=== PATIENT | female | born 1955 | race Asian ===

== ENCOUNTER 2024-09-26 20:03 | Emergency (ER) | payer MEDICARE, MEDICAID, SELFPAY ==
--- NOTE | 2024-09-26 20:24 | EKG_ITS ---
[facility] Test Date: 2024-09-26 Pat Name: ABRAHAM HOOK Department: Room: - Gender: Female Store Administrator: : 1955 Requested By: Yordy Garcia Order Number: [id number] Reading MD: Yordy Garcia Measurements Intervals [place] Rate: 63 P: 32 SC: 184 QRS: -16 QRSD: 86 T: 36 QT: 419 QTc: 430 Interpretive Statements SINUS RHYTHM LOW QRS VOLTAGE IN PRECORDIAL LEADS [QRS DEFLECTION < 1.0 mV IN CHEST LEADS] PATTERN CONSISTENT WITH PULMONARY DISEASE Compared to ECG 02/16/2024 01:36:08 No significant changes /store/S0/[id number]/ecg/[id number].pdf
[2024-09-26 21:24] VITALS: BP 166/93; PULSE 67; RESP 20; TEMP 37.1; O2SAT 97
--- NOTE | 2024-09-26 21:49 | XR_ITS ---
Chest single view Technique: Upright chest single view Exam date and time: September 26, 2024 2156 hrs. Comparison February 16, 2024 Indication: Chest pain. Findings: Early heart failure Mild enlargement cardiac contour Prominent vascular congestion. Early septal edema at the lung bases Impression: Early heart failure
--- NOTE | 2024-09-26 21:50 | PD.EDRME ---
Rapid Medical Screening Exam [facility] Arrival date/time: 09/26/24 20:03 69F with history of HTN presents to ED with L lower CP that radiates to back for 2 days. Patient denies URI symptoms and SOB. Pain is worse with movement. Chief Complaint: Chest Pain Vital signs: Vital Signs Temperature 98.7 F 09/26/24 21:24 Pulse Rate 67 09/26/24 21:24 Respiratory Rate 20 09/26/24 21:24 Blood Pressure 166/93 H 09/26/24 21:24 Pulse Oximetry (%) 97 09/26/24 21:24 Oxygen Delivery Method Room Air 09/26/24 21:24
[2024-09-26 22:39] LABS: Basophils # (Auto) 0.1 Thou/mm3 (0.0-0.2); Basophils % (Auto) 1 % (0-2.5); Eosinophils # (Auto) 0.3 Thou/mm3 (0.0-0.5); Eosinophils % (Auto) 3 % (0-10); Hematocrit 42.2 % (36.0-46.0); Hemoglobin 14.2 g/dL (12.0-16.0); Immature Granulocytes % (Auto) 0 % (0-0); Immature Granulocytes Auto 0.03 Thou/mm3 (0.00-0.00); Lymphocytes # (Auto) 1.6 Thou/mm3 (1.0-4.8); Lymphocytes % (Auto) 17 % (10-50); Mean Corpuscular HGB Conc 33.6 g/dl (31.0-37.0); Mean Corpuscular Volume 86 fL (80-100); Monocytes # (Auto) 0.5 Thou/mm3 (0.0-0.8); Monocytes % (Auto) 5 % (0-12); Neutrophils # (Auto) 6.9 Thou/mm3 (1.8-7.7); Neutrophils % (Auto) 74 % (37-80); Nucleated Red Blood Cell % 0 /100 WBC (0); Platelet Count 169 Thou/mm3 (140-440); RDW Standard Deviation 43.7 fL (36.4-46.3); White Blood Count 9.3 Thou/mm3 (3.6-11.0)
[2024-09-26 22:58] LABS: Alanine Aminotransferase 26 U/L (10-49); Albumin, Serum 4.9 gm/dL (3.4-4.8); Albumin/Globulin Ratio 1.3 (1.2-2.2); Alkaline Phosphatase 73 U/L (46-116); Anion Gap 7 (7-16); Aspartate Amino Transferase 24 U/L (0-34); BUN/Creatinine Ratio 22 Ratio (12-20); Bilirubin,Total 0.7 mg/dL (0.3-1.2); Blood Urea Nitrogen 24 mg/dL (9-23); Carbon Dioxide 28.7 mMol/L (20.0-31.0); Chloride 105 mMol/L (98-107); Creatinine (Component) 1.1 mg/dL (0.6-1.3); Globulin 3.9 gm/dL (2.3-3.5); Glucose 108 mg/dL (74-106); Lipase 40 U/L (12-53); Osmolality,Calculated 286 (275-295); Potassium 4.7 mMol/L (3.4-5.1); Sodium 141 mMol/L (136-145); Total Protein 8.8 gm/dL (5.7-8.2); Troponin I < 0.002 ng/mL (0.0-0.045); eGFR 54 See Note
--- NOTE | 2024-09-26 23:33 | PD.EDCHEST ---
ED Chest Pain RME/HPI General Chief Complaint: Chest Pain Stated Complaint: CHEST PAIN Time Seen by Provider: 09/26/24 23:33 Arrival date/time: 09/26/24 20:03 Limitations: language barrier (speaks Hmong) RME / HPI RME / HPI narrative: 09/26/24 20:03 69F with history of HTN presents to ED with L lower CP that radiates to back for 2 days. Patient denies URI symptoms and SOB. Pain is worse with movement. ------ Dr. Miles?s Main ED Evaluation: 69yo female with a history of HTN, gout accompanied by her son presents to the ED for a chief of left-sided chest pain that radiates to her upper back x yesterday morning. Patient states her pain is intermittent, currently rating her pain a 6 out of 10 in severity. She describes her pain as pressure and tightness in nature. She denies any cough, fever, chills or any other associated symptoms. No known allergies. Related Data Home Medications ?Medication ?Instructions ?Recorded ?Confirmed Amitriptyline Hcl * (ELAVIL *) 25 mg PO HS #0 tabs 07/12/17 MECLIZINE HCL (ANTIVERT 25MG tab PO Q12HR ##0 07/12/17 TABLET) carvedilol 12.5 mg tablet (Coreg) 12.5 mg PO BID #0 tabs 07/12/17 hydrochlorothiazide 25 mg tablet 25 mg PO QAM #0 tabs 07/12/17 ibuprofen 600 mg tablet 600 mg PO TID PRN PAIN #0 tabs 07/12/17 Previous Rx's ?Medication ?Instructions ?Recorded tramadol 50 mg tablet (Ultram) 1 - 2 tab PO Q6HR PRN moderate 07/12/17 pain #30 tabs tramadol 50 mg tablet 50 mg PO BID PRN pain #6 tabs 06/22/22 Allergies Allergy/AdvReac Type Severity Reaction Status Date / Time NKA* Allergy Uncoded 02/16/24 01:02 Review of Systems Review of Systems Systems Reviewed: All systems reviewed, normal except as documented ED Exam Narrative Physical exam: GENERAL APPEARANCE: alert and oriented x 4, well-developed, well-nourished, no acute distress VITALS: All vitals were reviewed and the pulse ox is 97% on room air, which is normal according to my interpretation. HEENT: Normocephalic, atraumatic; pupils equal, round, reactive to light; EOMI; mucous membranes pink, moist; oropharynx clear NECK: Supple LUNGS: CTABL; no wheezes, no rales, no rhonchi HEART: Regular rate, regular rhythm; normal S1, S2; no murmurs ABDOMEN: non distended; normal BS; soft, no tenderness, no guarding, no rebound; no masses, no organomegaly, no hernia BACK: no CVA tenderness EXTREMITIES: atraumatic; no edema NEUROLOGIC: awake; alert and oriented x4; cranial nerves II-XII grossly intact; no focal sensory or motor deficits PSYCHIATRIC: appropriate mood and affect SKIN: warm, dry, normal color; no rashes General Limitations: Present language barrier (speaks Hmong) Course Course Course Narrative: CXR is ordered for determining the etiology of chest pain. Quality Measures none Orders Category Date Time Status CT Screening NOW Care 09/26/24 23:48 Completed Tape Rules Printing Machine Operator STAT Care 09/26/24 23:41 Completed Continuous Pulse Oximetry ONCE Care 09/26/24 23:41 Completed EKG (ED ONLY) *Do not use* NOW Care 09/26/24 20:24 Completed Insert IV STAT Care 09/26/24 23:[address] chest w con Stat Exams 09/26/24 23:48 Taken EKG (ED Only) Stat Exams 09/26/24 20:24 Draft XR chest 1V portable Stat Exams 09/26/24 21:49 Completed B-Type Natriuretic Peptide Stat Lab 09/26/24 22:13 Completed CBC Stat Lab 09/26/24 22:10 Completed Comprehensive Metabolic Panel Stat Lab 09/26/24 22:10 Completed Lipase Stat Lab 09/26/24 22:10 Completed Magnesium Stat Lab 09/26/24 22:10 Completed Troponin I Stat Lab 09/26/24 22:10 Completed Morphine Inj Med 09/26/24 23:43 Discontinued 2 mg IVP X1 ONE Nitroglycerin Oint 2% [Nitro-paste Oint 2%] Med 09/26/24 23:41 Discontinued 1 inch TOP X1 ONE Ondansetron Inj [Zofran Inj] Med 09/26/24 23:43 Discontinued 4 mg IV X1 ONE Vital Signs Vital signs: Vital Signs Temperature 98.7 F 09/26/24 21:24 Pulse Rate 67 09/26/24 21:24 Respiratory Rate 20 09/26/24 21:24 Blood Pressure 166/93 H 09/26/24 21:24 Pulse Oximetry (%) 97 09/26/24 21:24 Oxygen Delivery Method Room Air 09/26/24 21:24 Chest Pain MDM Narrative MDM Narrative:: Scribe Attestation: 09/26/24 - Seda Weiss am scribing for and in the presence of Dr. Miles. Patient data External records reviewed:: [facility] previous records (Per chart review, patient was seen here on 02/16/24 for chest pain.) Clinical information provided by:: patient Social determinants that could affect healthcare access:: none Patient has the following chronic illnesses:: HTN, gout How is presenting disease/condition affected by chronic disease/condition?: uneffected by Evaluation data The following diagnostics were reviewed and interpreted by me:: lab results, radiology exam(s) and EKG tracing(s) Lab and/or radiology exams considered but not ordered:: none Interpretation Summary: CBC is normal, CMP is normal, initial troponin is normal, according to my interpretation. CXR shows normal cardiac silhouette, normal sharp diaphragmatic edge, no infiltrates, normal costophrenic angles, according to my interpretation. EKG done at 2127, NSR, rate of 63, left axis deviation, no ectopy, T-wave inversions in V1-V3, no acute ischemia, according to my interpretation. -------- Telerad Preliminary Report Draft Patient: ABRAHAM HOOK. Record#: [id number] Birthdate: 1955 Age/Sex: 69 / F Location: [facility] Attending Dr: Ordering Physician: Date of Service: Procedure(s): Accession Number(s): cc: ~ CT scan of the chest with intravenous contrast (axial sections with sagittal and coronal reformats) September 27, 2024 0127 hours Clinical History: Chest pain to the back. No prior study is available for comparison. Findings: There are ground glass opacities with interstitial septal thickening in bilateral lungs. There is right middle lobe atelectasis. No evidence of pleural effusion or pneumothorax. There is moderate cardiomegaly. The ascending aorta appears mild ectatic measuring 4 cm in diameter. The aorta and its branches demonstrate atheromatous calcification without evidence of aneurysm.The mediastinum demonstrates no evidence of mass or lymphadenopathy. The thoracic aorta is unremarkable. There is no pericardial effusion. Coronary artery calcification is present. Mild degenerative changes are identified in the spine. The visualized upper abdominal viscera are unremarkable Impression: Ground glass opacities in lungs bilaterally with interstitial septal thickening, likely represent interstitial edema versus infection. Other findings as described above. Report Electronically Signed By: Alexis Huff 09/27/2024 2:37:01 AM Medications / Prescriptions Medications or Prescriptions considered but not ordered:: none Medication administrations:: Medication Administration History Discontinued Medications Morphine Sulfate (Morphine Sulf Inj 10 Mg/Ml Vial) 2 mg IVP X1 ONE Stop: 09/26/24 23:44 Last Admin: 09/27/24 00:45 Dose: 2 mg Documented By: YARELI Nitroglycerin (Nitroglycerin Oint 2% 1 Inch Packet) 1 inch TOP X1 ONE Stop: 09/26/24 23:42 Last Admin: 09/27/24 00:46 Dose: 1 inch Documented By: YARELI Ondansetron HCl (Ondansetron Inj 2 Mg/Ml Inj 2 Ml) 4 mg IV X1 ONE; Protocol Stop: 09/26/24 23:44 Last Admin: 09/27/24 00:46 Dose: 4 mg Documented By: YARELI see above Consultations Consultation(s) initiated? (list below): No Diagnosis Chest Pain Differential Diagnosis: other (STEMI, NSTEMI, angina, aortic dissection, PE) Most likely diagnosis given after review of the tests above:: see below Admission Indicated Admission indicated?: not indicated Admission Request Was there a request for admission?: No Disposition Plan Disposition Plan: Discharge Discharge Attestation Discharge Attestation: The patient and all family members were given an opportunity to ask questions and understood the discharge instructions. Discharge instructions specifically effects, indications for sooner follow up or return to the emergency department, and the expected course of current diagnosis. Patient condition: Stable Discharge Plan Plan Patient Disposition: HOME (Self Care) Disposition Comment: Stable for discharge Patient condition on transfer: Stable Prescriptions/Referrals Prescriptions/Med Rec: No Action hydrochlorothiazide 25 MG tablet 25 mg PO QAM Qty: 0 MECLIZINE HCL (ANTIVERT 25MG TABLET) 25 MG tablet PO Q12HR Qty: 0 Amitriptyline Hcl * (ELAVIL *) 25 MG tablet 25 mg PO HS Qty: 0 carvedilol [Coreg] 12.5 MG tablet 12.5 mg PO BID Qty: 0 ibuprofen 600 MG tablet 600 mg PO TID PRN (Reason: PAIN) Qty: 0 tramadol [Ultram] 50 MG tablet 1 - 2 tab PO Q6HR PRN (Reason: moderate pain) Qty: 30 0RF Rx Instructions: FOR PAIN, NOT TO EXCEED 8 TABS IN 24 HRS tramadol 50 mg tablet 50 mg PO BID PRN (Reason: pain) Qty: 6 0RF Referrals: Juan A Mora MD [Physician] - In 1 week Gregor Rod MD [Primary Care Provider] - In 1 week Problem List Clinical Impression: Chest pain Patient/Caregiver Discharge Instructions Discharge Activity: activity as tolerated Education Materials: ED Chest Pain, Uncertain Cause Additional Instructions: Please return to the emergency department for any worsening or any further medical problems Otherwise you should follow-up with your primary care doctor within the next several days You should also follow-up with Dr. Mora. He is the poultry farm laborer that is on-call for the ER tonnaseem. Tonight you had chest pain and it does not look like you are having a heart attack but you should still be seen by a heart doctor for further testing. Print Language: Taste Guruong Stand Alone Forms: Patricia Award Info., Patient Portal Info Letter
--- NOTE | 2024-09-26 23:48 | XR_ITS ---
Examination: CT chest with intravenous contrast 2-D sagittal and coronal reconstructions Exam date and time: September 2024 0127 hrs. Indications: Onset chest pain shortness of breath today CTDI:vol (mGy) 12.3 DLP: (mGycm) 429 Technique: Multiple axial sections of the thorax have been obtained. Sections have been obtained, 3 mm slice thickness. Mediastinal and lung density settings have been obtained. Intravenous contrast administered, 60 cc Isovue-370. 2-D sagittal, coronal images obtained. Low dose protocols were performed. One or more of the following dose reduction techniques were used; automated exposure control, adjustment of the mA and/or KV according to patient size, use of iterative reconstruction technique. Findings: AP dimension ascending thoracic aorta 3.7 cm Pulmonary artery segments are not enlarged No pulmonary artery emboli Mild bilateral hilar lymphadenopathy Subtle opacity in the lung bryson, edema and/or pneumonia No pleural disease No focal liver or splenic lesions No gallstones No pancreatic mass Impression: Negative for pulmonary artery emboli Subtle opacity in the lung bryson, edema versus pneumonia, clinical correlation advised
[2024-09-27 00:05] LABS: Magnesium 2.2 mg/dL (1.6-2.6)
[2024-09-27 00:16] LABS: B-Type Natriuretic Peptide 46 pg/mL (0-100)
[2024-09-27 00:40] VITALS: BP 206/104; PULSE 68; RESP 30; O2SAT 99
[2024-09-27] MEDS: MORPHINE SULF INJ 10 MG/ML VIAL 2 MG IVP (00:45)
[2024-09-27 00:46] VITALS: BP 186/96; PULSE 61
[2024-09-27] MEDS: ONDANSETRON INJ 2 MG/ML INJ 2 ML 4 MG IV (00:46)
[2024-09-27] MEDS: NITROGLYCERIN OINT 2% 1 INCH PACKET TOP (00:46)
--- NOTE | 2024-09-27 02:37 | PRELIM_ITS ---
CT scan of the chest with intravenous contrast (axial sections with sagittal and coronal reformats) September 27, 2024 0127 hours Clinical History: Chest pain to the back. No prior study is available for comparison. Findings: There are ground glass opacities with interstitial septal thickening in bilateral lungs. There is right middle lobe atelectasis. No evidence of pleural effusion or pneumothorax. There is moderate cardiomegaly. The ascending aorta appears mild ectatic measuring 4 cm in diameter. The aorta and its branches demonstrate atheromatous calcification without evidence of aneurysm.The mediastinum demonstrates no evidence of mass or lymphadenopathy. The thoracic aorta is unremarkable. There is no pericardial effusion. Coronary artery calcification is present. Mild degenerative changes are identified in the spine. The visualized upper abdominal viscera are unremarkable Impression: Ground glass opacities in lungs bilaterally with interstitial septal thickening, likely represent interstitial edema versus infection. Other findings as described above. Report Electronically Signed By: Alexis Huff 09/27/2024 2:37:01 AM [EST]
[2024-09-27 03:03] VITALS: BP 136/76; PULSE 57; RESP 16; TEMP 36.4; O2SAT 96
== END 2024-09-27 03:27 | disposition home or self-care (01) ==
PROVIDERS: Physician Assistant; Emergency Provider Emergency Medicine; PCP Family Medicine
DX: R07.89 Other chest pain (principal); I10 Essential (primary) hypertension
CPT/HCPCS: 36415; 71045; 71260; 80053; 83690; 83735; 83880; 84484; 85025; 93005; 96374; 96375; 99285; A4649; J2270; J2405; Q9967; A9270

== ENCOUNTER 2025-06-12 10:43 | Emergency (ER) | payer MEDICARE, MEDICAID, SELFPAY ==
--- NOTE | 2025-06-12 | XR_ITS ---
Examination: MRI left wrist without contrast Date and time of exam: June 12, 2025, 1738 hours INDICATIONS: Wrist pain this month, suspicious for avascular necrosis on plain films of the wrist today Technique: Multiple MRI axial and sagittal sections lumbar spine. Sagittal T2-weighted images, TR 3500, TE 118 T1 weighted transverse sections, TR 688 T8.5, T2-weighted sagittal sections T1 weighted sagittal sections TR 621, TE 30 T2 axial sections, TR 4, 190, TE 84. Findings: Cystic change in the lunate but no findings diagnostic for avascular necrosis Old fractures of the radial styloid Tear in the triangular fibrocartilage, coronal image 6 Flexor tendons are intact with normal median nerve Diffuse tendinitis of the extensor tendons including flexor on naris tendon No occult fracture No ganglion cyst IMPRESSION: Cystic change in the lunate but no findings diagnostic for avascular necrosis Small old fractures of the radial styloid tip No acute fracture Tear of the triangular fibrocartilage on the ulnar side
[2025-06-12 10:43] VITALS: BMI 28.2
[2025-06-12 11:01] VITALS: BP 125/84; PULSE 89; RESP 18; TEMP 36.6; O2SAT 99
--- NOTE | 2025-06-12 11:03 | XR_ITS ---
Examination: Left elbow 3 views Technique: Elbow AP, oblique, lateral 3 views Exam date and time: June 12, 2025, 1115 hours INDICATIONS: Lifting injury to the elbow 3 days ago, elbow pain. FINDINGS: Nonstandard views Large elbow effusion No definite fracture IMPRESSION: Limited study No definite acute fracture Given the large elbow effusion, recommend short-term follow-up elbow films as clinically warranted.
--- NOTE | 2025-06-12 11:03 | XR_ITS ---
Examination: Wrist, right 3 views Technique: Wrist AP, oblique, lateral 3 views Date and time of exam: June 12, 2025, 1115 hours INDICATIONS: Left wrist pain 3 days. FINDINGS: Sclerosis involving the lunate No fracture Mild narrowing radiocarpal joint IMPRESSION: Suspicious for avascular process involving the lunate MRI wrist without contrast follow-up would confirm this diagnosis
--- NOTE | 2025-06-12 11:03 | XR_ITS ---
Examination: Shoulder, left, 3 views Technique: Shoulder AP internal rotation, AP external rotation, Y view shoulder, 3 views Exam date and time : June 12, 2025, 1115 hours INDICATIONS: Left shoulder pain 3 days FINDINGS: Mild shoulder calcific tendinitis No shoulder fracture or dislocation Mild narrowing glenohumeral joint IMPRESSION: Mild shoulder calcific tendinitis
--- NOTE | 2025-06-12 11:07 | PD.EDUPEX ---
Upper Extremity Injury RME/HPI General Chief Complaint: Extremity Injury, Upper Stated Complaint: L ARM PAIN S/P TAKING OUT THE TRASH Time Seen by Provider: 06/12/25 11:07 Source: patient Arrival date/time: 06/12/25 10:43 70-year-old female with no known medical history presents to the emergency room with a chief complaint of left wrist elbow and shoulder pain after taking out the trash 2 days ago and injuring it. Mode of arrival: ambulatory Limitations: no limitations Related Data Home Medications ?Medication ?Instructions ?Recorded ?Confirmed Amitriptyline Hcl * (ELAVIL *) 25 mg PO HS #0 tabs 07/12/17 MECLIZINE HCL (ANTIVERT 25MG tab PO Q12HR ##0 07/12/17 TABLET) carvedilol 12.5 mg tablet (Coreg) 12.5 mg PO BID #0 tabs 07/12/17 hydrochlorothiazide 25 mg tablet 25 mg PO QAM #0 tabs 07/12/17 ibuprofen 600 mg tablet 600 mg PO TID PRN PAIN #0 tabs 07/12/17 Previous Rx's ?Medication ?Instructions ?Recorded tramadol 50 mg tablet (Ultram) 1 - 2 tab PO Q6HR PRN moderate 07/12/17 pain #30 tabs tramadol 50 mg tablet 50 mg PO BID PRN pain #6 tabs 06/22/22 Allergies Allergy/AdvReac Type Severity Reaction Status Date / Time NKA* Allergy Uncoded 06/12/25 10:47 ED Exam General Limitations: Present no limitations Course Orders Category Date Time Status sling [Splint / Immobilizer] STAT Care 06/12/25 11:03 Active XR elbow comp LT min 3V Stat Exams 06/12/25 11:03 Completed XR shoulder LT min 2V Stat Exams 06/12/25 11:03 Completed XR wrist comp LT min 3V Stat Exams 06/12/25 11:03 Completed Ketorolac Inj [Toradol Inj] Med 06/12/25 11:03 Discontinued 30 mg IM X1 ONE Vital Signs Vital signs: Vital Signs Temperature 98 F 06/12/25 11:01 Pulse Rate 89 06/12/25 11:01 Respiratory Rate 18 06/12/25 11:01 Blood Pressure 125/84 06/12/25 11:01 Pulse Oximetry (%) 99 06/12/25 11:01 Oxygen Delivery Method Room Air 06/12/25 11:01 Extremity Injury Medications / Prescriptions Medication administrations:: Medication Administration History Discontinued Medications Ketorolac Tromethamine (Ketorolac Inj 60 Mg/2 Ml Vial) 30 mg IM X1 ONE Stop: 06/12/25 11:04 Last Admin: 06/12/25 11:08 Dose: 30 mg Documented By: CARLA Discharge Plan Prescriptions/Referrals Prescriptions/Med Rec: No Action hydrochlorothiazide 25 MG tablet 25 mg PO QAM Qty: 0 MECLIZINE HCL (ANTIVERT 25MG TABLET) 25 MG tablet PO Q12HR Qty: 0 Amitriptyline Hcl * (ELAVIL *) 25 MG tablet 25 mg PO HS Qty: 0 carvedilol [Coreg] 12.5 MG tablet 12.5 mg PO BID Qty: 0 ibuprofen 600 MG tablet 600 mg PO TID PRN (Reason: PAIN) Qty: 0 tramadol [Ultram] 50 MG tablet 1 - 2 tab PO Q6HR PRN (Reason: moderate pain) Qty: 30 0RF Rx Instructions: FOR PAIN, NOT TO EXCEED 8 TABS IN 24 HRS tramadol 50 mg tablet 50 mg PO BID PRN (Reason: pain) Qty: 6 0RF Referrals: Gregor Rod MD [Primary Care Provider, Family Practice] - In 1 week Patient/Caregiver Discharge Instructions Print Language: Sharon
[2025-06-12] MEDS: KETOROLAC INJ 60 MG/2 ML VIAL 30 MG IM (11:08)
--- NOTE | 2025-06-12 12:09 | PD.EDRME ---
Rapid Medical Screening Exam [facility] Arrival date/time: 06/12/25 10:43 70-year-old female with no known medical history presents to the emergency room with a chief complaint of left wrist elbow and shoulder pain after taking out the trash 2 days ago and injuring it. I have greeted and performed a focused initial assessment of this patient. A comprehensive ED assessment and evaluation of the patient, analysis of all test results, and completion of the medical decision making process will be conducted by additional ED providers. Chief Complaint: Extremity Injury, Upper Time Seen by Provider: 06/12/25 11:07 Vital signs: Vital Signs Temperature 98 F 06/12/25 11:01 Pulse Rate 89 06/12/25 11:01 Respiratory Rate 18 06/12/25 11:01 Blood Pressure 125/84 06/12/25 11:01 Pulse Oximetry (%) 99 06/12/25 11:01 Oxygen Delivery Method Room Air 06/12/25 11:01 Vital signs reviewed by provider: No Exam: Left arm limited range of motion tenderness to the wrist tenderness to the elbow swelling to the elbow Clinical Impression: Wrist fracture/wrist pain
--- NOTE | 2025-06-12 19:19 | PD.EDADDENDU ---
Emergency Room Addendum Addendum Narrative: Patient was signed out to me from the PA. She is waiting for her MRI result. He put her in a sling and otherwise neurovascular intact. The sling looks in place. MRI noted. [facility] [address] [place] [address] [facility] Signed Patient: ABRAHAM HOOK Record#: [id number] Birthdate: 1955 Age/Sex: 70 / F Location: [facility] Attending Dr: Ordering Physician: Royal Nielson Date of Service: 06/12/25 Procedure(s): MR wrist LT wo con Accession Number(s): [id number] cc: Royal Nielson; Gregor Rod MD; Lawson North MD~ Examination: MRI left wrist without contrast Date and time of exam: June 12, 2025, 1738 hours INDICATIONS: Wrist pain this month, suspicious for avascular necrosis on plain films of the wrist today Technique: Multiple MRI axial and sagittal sections lumbar spine. Sagittal T2-weighted images, TR 3500, TE 118 T1 weighted transverse sections, TR 688 T8.5, T2-weighted sagittal sections T1 weighted sagittal sections TR 621, TE 30 T2 axial sections, TR 4, 190, TE 84. Findings: Cystic change in the lunate but no findings diagnostic for avascular necrosis Old fractures of the radial styloid Tear in the triangular fibrocartilage, coronal image 6 Flexor tendons are intact with normal median nerve Diffuse tendinitis of the extensor tendons including flexor on naris tendon No occult fracture No ganglion cyst IMPRESSION: Cystic change in the lunate but no findings diagnostic for avascular necrosis Small old fractures of the radial styloid tip No acute fracture Tear of the triangular fibrocartilage on the ulnar side Assessment and plan: No vascular necrosis. Return precautions are given understood. She will continue all her medications as prescribed
== END 2025-06-12 19:27 | disposition home or self-care (01) ==
PROVIDERS: Emergency Provider Emergency Medicine; PCP Family Medicine
DX: S63.592A Other specified sprain of left wrist, initial encounter (principal); X58.XXXA Exposure to other specified factors, initial encounter
CPT/HCPCS: 73030; 73080; 73110; 73221; 96372; 99283; J1885